=== PATIENT | female | born 1945 | race Caucasian/White ===

== ENCOUNTER 2016-06-21 08:46 | Emergency (ER) | payer MEDICARE, BC ==
--- NOTE | 2016-06-21 11:31 | ERNOTE ---
Lower Extremity HPI - Narrative Date of Service: 06/21/16 - General Time Seen by Provider: 06/21/16 09:22 Source: patient Exam Limitations: no limitations - Immun/Allergies/Home Medications Immunizations: IMMUNIZATION HX Immunizations Up to Date No: unsure History of Influenza Vaccine No Hx Pneumococcal Vaccination No Allergies/Adverse Reactions: Allergies Allergy/AdvReac Type Severity Reaction Status Date / Time No Known Allergies Allergy Verified 06/21/16 09:18 Home Medications: HOME MEDICATIONS Multivitamins [Multivitamin Toyin] 1 cap PO DAILY 06/16/13 [Last Taken Unknown] Glucosamine/Chondroitin Sulf A [Glucosamine Chondroitin Cap] 1 each PO DAILY 07/07 [Last Taken Unknown] Tolterodine Tartrate [Detrol LA] 4 mg PO DAILY 03/30/14 [Last Taken Unknown] Cyclobenzaprine HCl [Flexeril] 10 mg PO TID PRN #30 tab 06/21/16 [Last Taken Unknown] Lisinopril [Zestril] 10 mg PO DAILY 06/21/16 [Last Taken Unknown] Lovastatin [Altoprev] 20 mg PO DAILY 06/21/16 [Last Taken Unknown] Naproxen [Naprosyn] 500 mg PO BID #60 tablet 06/21/16 [Last Taken Unknown] - History of Present Illness Narrative: Patient presents with an achy pain in her right anterior thigh. She had surgery for hip replacement done several years ago and was worried that possibly there had been a fracture around the site where the shaft was put in the right femur. She describes the pain as achy and it is worse when she tries to walk, but at rest she has no pain and she denies any swelling. Occurred: other - past several days Method of Injury: Reports: no apparent injury Loss of Consciousness: Reports: no loss of consciousness Other Injuries: Reports: none Review of Systems - Review of Systems Constitutional: Present: See HPI EYE: Present: no symptoms reported ENT: Present: no symptoms reported Respiratory: Present: no symptoms reported Cardiology: Present: no symptoms reported Gastrointestinal/Abdominal: Present: no symptoms reported Genitourinary: Present: no symptoms reported Musculoskeletal: Present: muscle pain Skin: Present: no symptoms reported Neurological: Present: no symptoms reported Endocrine: Present: no symptoms reported Hematologic/Lymphatic: Present: no symptoms reported Psych: Present: no symptoms reported - Patient's Past Medical History Patient History - Medical: No pertinent hx Patient History - Cardiac/Respiratory: Hypertension, Hyperlipidemia Patient History - Cancer: No Hx of Cancer Patient History - Surgical Procedures: Appendectomy, , D & C, Hysterectomy, Total Hip Replacement, Other Patient History - Other: None - Social History Living Situations: spouse Abuse History: No History of abuse Psych History: No pertinent hx Smoking Status: Never smoker Have you smoked in the past 12 months: No Do you dip or chew tobacco: No Alcohol Use: occasionally Drug Use: none - Immunizations Immunizations Up to Date: No - unsure Hx Pneumococcal Vaccination: No History of Influenza Vaccine: No Physical Exam - Physical Exam General Appearance: Present: wd/wn, alert, no apparent distress Eye Exam: Normal inspection: bilateral, PERRL: bilateral Ears, Nose, Throat: Present: normal ENT inspection, H, normal pharynx Neck: Present: normal inspection, nontender Respiratory: Present: no respiratory distress, normal breath sounds, no accessory muscle use, chest nontender, lungs clear Cardiovascular/Chest: Present: regular rate, rhythm, no murmur, normal peripheral pulses Gastrointestinal/Abdominal: Present: normal bowel sounds, nontender, nondistended, soft, no organomegaly Rectal Exam: Present: deferred Back Exam: Present: normal inspection, normal range of motion Extremity Exam: Present: normal inspection, non-tender, no edema, normal range of motion Neurological Exam: Present: alert, oriented, normal mood/affect Skin Exam: Present: normal color, warm/dry Lymphatic Exam: Present: no adenopathy ED Progress - Vital Signs Patient's Vital Signs:: I have reviewed the patient's vital signs. Vital Signs: Vital Signs 06/21/16 09:09 Temperature 37.0 C Pulse Rate 72 Respiratory 15 Rate Blood Pressure 188/89 O2 Sat by Pulse 99 Oximetry - X-Ray X-Ray #1 X-Ray: femur Interpretation: Reviewed by me - CT/Ultrasound CT/Ultrasound Narrative: US results were reviewed - Progress/Reassessment Chief Complaint: Lower Extremity Pain/ Injury Progress:: Unchanged Plan - Plan Plan: Unclear etiology for the muscle pain in the right anterior thigh. I believe we should at least entertain a muscle strain type of phenomenon. Patient will be started on a nonsteroidal and a muscle relaxer and she is to follow-up with her family physician in a week to 10 days. Departure Clinical Impression: Strain of hip and thigh Qualifiers: Encounter type: initial encounter Laterality: right Qualified Code(s): S76.011A - Strain of muscle, fascia and tendon of right hip, initial encounter; S76.911A - Strain of unspecified muscles, fascia and tendons at thigh level, right thigh, initial encounter - Departure Disposition: Home self-care Condition: Good Instructions: Muscle Strain, [id number] Prescriptions: Cyclobenzaprine HCl [Flexeril] 10 mg PO TID PRN #30 tab PRN Reason: MUSCLE SPASMS Naproxen [Naprosyn] 500 mg PO BID #60 tablet
[2016-06-21 11:40] VITALS: BP 129/85
== END 2016-06-21 11:37 | disposition home or self-care (01) ==
LOC: ER 08:46
DX: S76.011A Strain of muscle, fascia and tendon of right hip, initial encounter (principal); S76.911A Strain of unspecified muscles, fascia and tendons at thigh level, right thigh, initial encounter; I10 Essential (primary) hypertension; E78.5 Hyperlipidemia, unspecified; Z96.649 Presence of unspecified artificial hip joint